=== PATIENT | female | born 1980 | race American Indian/Alaskan Native ===

== ENCOUNTER 2018-09-20 12:39 | Outpatient (CLI) | payer OTHER, MEDICAID ==
[2018-09-20 13:13] VITALS: BP 109/53
[2018-09-20] MEDS ORDERED: LACTATED RINGERS 500 ML IV ONE (13:57)
--- NOTE | 2018-09-20 15:06 | Ultrasound Report ---
ULTRASOUND BIOPHYSICAL PROFILE: History: well being Technique: Transabdominal ultrasound with Doppler interrogation. 2 - breathing movements 2 - movements 2 - posture and tone 2 - Qualitative amniotic fluid volume 8 - TOTAL SCORE OF POSSIBLE 8 Heart Rate (bpm) 135
--- NOTE | 2018-09-20 15:06 | Ultrasound Report ---
ULTRASOUND OB LIMITED History: labor Technique: Transabdominal ultrasound with Doppler interrogation. Gestation: Single Position: Cephalic Amniotic Fluid: Normal KELLIE = 12.5 cm Heart Rate: 13 BPM
== END 2018-09-20 14:22 | disposition home or self-care (01) ==
LOC: TRG 12:39
PROVIDERS: ATTEND Obstetrics & Gynecology
DX: O47.03 False labor before 37 completed weeks of gestation, third trimester (principal); O24.419 Gestational diabetes mellitus in pregnancy, unspecified control; Z3A.35 35 weeks gestation of pregnancy
CPT/HCPCS: 59025; 76815; 76819